=== PATIENT | male | born 1960 | race Caucasian/White ===

== ENCOUNTER → 2016-10-15 | Outpatient (CLI) | payer BC, OTHER ==
[~2016-10-15] VITALS: Ht 167.6 cm; Wt 98.4 kg
[~2016-10-15] MED LIST: ACCUNEB SO1.25 MG/1 INH; ASPIR 8181 MG PO; CARISOPRODOL 3350 M1 PO; CARISOPRODOL 3350 MG PO; CEFUROXIME250 MG PO; DILAUDID 2 MG TA2 MG PO; DOXYCYCLINE HY100 M3 PO; ENALAPRIL MALEA10 M1 PO; FERREX 150 PLU1 EAC1 PO; GUAIFENESIN-CODE5 ML PO; NAPROSYN500 MG PO; NITRO-TIME2.5 MG PO; OXYCONTIN20 M1 PO; OXYCONTIN40 MG PO; PACERONE 200 M200 MG PO; PROTONIX40 M2 PO; TOPROL XL25 MG PO; TRAMADOL 50 MG50 MG PO; TRAZODONE HCL50 MG PO; VENTOLIN HFA 1818 GM INH; VICODIN 5-5001 EACH PO; VITAMINC500 PO; WELLBUTRIN XL150 M1 PO; XANAX 0.5 MG0.5 M1 PO
--- NOTE | ~2016-10-15 | CATHLAB ---
[facility] [place] [address] INVASIVE PROCEDURE REPORT Name: TRACI NAGEL Room #: REG CL Jose Maria#: [id number] Admission: 10/15/16 Attend Phys: Marcelo Perdomo MD Discharge: Date of : 62 Date of Service: 10/15/16 1317 Report #: [id number] THIS REPORT FOR: //name// CC: Miguel Perdomo DATE OF SERVICE: 10/15/2016 INDICATION: Unstable angina, abnormal nuclear stress test. Full risks, benefits and alternatives of cardiac catheterization were explained to the patient. All questions were answered. Informed consent was obtained. A Barbeau test was performed on the right radial artery. The right wrist area was prepped and draped in a sterile manner. Lidocaine was given subcutaneously. A 5-Sudanese sheath was inserted into the right radial artery via modified Seldinger technique. Nitroglycerin and verapamil was injected through the sheath. The right radial artery was tortuous with a severe, acute loop in the upper forearm. It was decided at this time to proceed with the cardiac catheterization via the right femoral artery access. After the procedure, the sheath was removed and a Vasc band was applied for hemostasis. A 4-Sudanese sheath was inserted into the right femoral artery via modified Seldinger technique. CORONARY ANATOMY: 1. The left main has mild disease in the distal segment, 30%. 2. The LAD has a severe, 80% stenosis in the proximal segment, just before the takeoff of the first septal director of labor and delivery. 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 Within this aneurysmal segment is a takeoff of the first diagonal artery. The mid LAD has mild diffuse disease, 30%. 3. The left circumflex artery supplies 3 obtuse marginal arteries. The ostium of the left circumflex artery has a 50-60% stenosis. The first obtuse marginal artery has a proximal 60-70% stenosis. The second and third obtuse marginal arteries are of moderate size caliber with no flow-limiting lesions. 4. The RCA is a dominant vessel supplying PDA and posterolateral branches. There is a subtotal occlusion in the proximal RCA. The remaining segments of the RCA are filled via collaterals. A left ventriculogram was performed revealing an ejection fraction of 45%. There is hypokinesis of the mid to basal inferior wall. The LVEDP is approximately 24 mmHg. There is no gradient across the outflow tract. IMPRESSION: 1. Severe 2-vessel disease. [facility] [address] [place] [address] INVASIVE PROCEDURE REPORT Name: NAGELDIANNNANCI CHICO Room #: REG [facility]#: [id number] Admission: 10/15/16 Attend Phys: Marcelo Perdomo MD Discharge: Date of : 62 Date of Service: 10/15/16 1317 Report #: [id number] 2. Mild segmental left ventricular dysfunction. 3. Recommend surgical evaluation. <ELECTRONICALLY SIGNED> By: Marcelo Perdomo MD 10/16/16 0848 1317 1401 Marcelo Perdomo MD /nt
--- NOTE | ~2016-10-15 | EKG ---
[place] [address] [address] [facility] [place] [employer] [address] ELECTROCARDIOGRAM REPORT Name: DIANN NAGELNANCI COBIAN Room #: REG CLI RoelRoel#: [id number] Admission: 10/15/16 Attend Phys: Marcelo Perdomo MD Discharge: Date of : 62 Report #: [id number] THIS REPORT FOR: //name// [facility] Test Date: 2016-10-15 Test Time: 10:01:06 Pat Name: TRACI NAGEL Department: Room: Gender: M [employer]: oral : 1960 Requested By: Marcelo Perdomo Order Number: [id number] MD: Amilcar Lindsey Measurements Intervals [place] Rate: 67 P: 28 WY: 135 QRS: 60 QRSD: 114 T: 11 QT: 443 QTc: 468 Interpretive Statements Sinus rhythm Probable left ventricular hypertrophy Inferior infarct, old No previous ECG available for comparison Electronically Signed On 10-15-2016 10:08:16 SPOT FACER by Amilcar Lindsey [email or web address] <ELECTRONICALLY SIGNED> By: Amilcar Lindsey MD 10/15/16 1008 1001 1001 MD LALI Soto
[2016-10-15 10:16] VITALS: BP 166/109
[2016-10-15 10:17] LABS: HEMOGLOBIN 14.5 gm/dL (14.0-18.0); MCHC 34.6 % (28.0-37.0); MCV 89.5 fL (80.0-100.0); RBC 4.69 mil/uL (4.50-6.00); WBC 7.5 thou/uL (4.0-11.0)
[2016-10-15 10:22] LABS: CALCIUM 8.6 mg/dL (8.5-10.1); CREATININE 0.7 mg/dL (0.6-1.3); POTASSIUM 4.1 mmol/L (3.5-5.1)
== END ==
LOC: CATH 07:18
PROVIDERS: Internal Medicine Cardiovascular Disease
DX: I20.0 Unstable angina (principal); R94.39 Abnormal result of other cardiovascular function study; Z95.1 Presence of aortocoronary bypass graft; I11.9 Hypertensive heart disease without heart failure; K21.9 Gastro-esophageal reflux disease without esophagitis; F17.210 Nicotine dependence, cigarettes, uncomplicated; Z86.19 Personal history of other infectious and parasitic diseases

== ENCOUNTER 2017-06-28 17:23 | Emergency (ER) | payer BC, OTHER ==
[~2017-06-28] VITALS: Ht 167.6 cm; Wt 90.7 kg
[2017-06-28] MEDS ORDERED: TIZANIDINE HCL4 M1 PO (17:37)
[2017-06-28] MEDS ORDERED: PREDNISONE 20 M20 MG PO (17:55)
[2017-06-28] MEDS ORDERED: CARISOPRODOL 3350 MG PO (17:57)
== END 2017-06-28 18:05 | disposition home or self-care (01) ==
LOC: ER 17:23
DX: M54.5 Low back pain (principal); K21.9 Gastro-esophageal reflux disease without esophagitis; I10 Essential (primary) hypertension; G47.30 Sleep apnea, unspecified; K74.60 Unspecified cirrhosis of liver; I25.2 Old myocardial infarction; Z90.89 Acquired absence of other organs; Z88.1 Allergy status to other antibiotic agents; Z88.6 Allergy status to analgesic agent; Z87.891 Personal history of nicotine dependence

== ENCOUNTER → 2018-02-28 | Outpatient (CLI) | payer BC ==
[~2018-02-28] MED LIST changes: +PREDNISONE 20 M20 MG PO; +TIZANIDINE HCL4 M1 PO
== END ==
LOC: NUC 06:35
DX: I25.10 Atherosclerotic heart disease of native coronary artery without angina pectoris (principal); I10 Essential (primary) hypertension; I48.92 Unspecified atrial flutter

== ENCOUNTER 2018-05-07 08:48 | Emergency (ER) | payer BC ==
[~2018-05-07] VITALS: Ht 167.6 cm; Wt 95.3 kg
[2018-05-07] MEDS ORDERED: PERCOCET 10-321 EACH PO (09:23)
[2018-05-07] MEDS ORDERED: MEDROLDOSEPACK PO (09:23)
== END 2018-05-07 09:42 | disposition home or self-care (01) ==
LOC: ER 08:48
DX: M54.12 Radiculopathy, cervical region (principal); I10 Essential (primary) hypertension; K21.9 Gastro-esophageal reflux disease without esophagitis; I25.2 Old myocardial infarction; M54.9 Dorsalgia, unspecified; G89.29 Other chronic pain; Z87.891 Personal history of nicotine dependence; Z88.8 Allergy status to other drugs, medicaments and biological substances

== ENCOUNTER → 2019-02-27 | Outpatient (CLI) | payer BC ==
[~2019-02-27] MED LIST changes: +MEDROLDOSEPACK PO; +PERCOCET 10-321 EACH PO
== END ==
LOC: MRI 12:18
DX: M47.817 Spondylosis without myelopathy or radiculopathy, lumbosacral region (principal); M51.27 Other intervertebral disc displacement, lumbosacral region; M48.07 Spinal stenosis, lumbosacral region; M25.78 Osteophyte, vertebrae

== ENCOUNTER → 2019-03-13 | Outpatient (CLI) | payer BC ==
--- NOTE | 2019-03-13 11:37 | 2DMMODE ---
[facility] [employer] [place] [place] [address] 2 D/M-MODE ECHOCARDIOGRAM Name: ROBETRACI Room #: REG [facility]#: [id number] ������������� Admission: 03/13/19 ������������� Attend Phys: Marcelo Perdomo MD Discharge: ��� ������������� ��� Date of : 62 Date of Service: 03/13/19 1137 �� Report #: [id number] �������� ��������������������������������������������[id number] THIS REPORT FOR: //name// APPROVED REPORT Study performed: 03/13/2019 09:59:34 EXAM: Comprehensive 2D, Doppler, and color-flow Echocardiogram Patient Location: Out-Patient Status: routine BSA: 2.04 HR: 71 bpm BP: 144/86 mmHg Rhythm: NSR Other Information Study Quality: Adequate Technically limited study due to . Indications Cardiomyopathy Hx: UT, CABG, COPD, HTN. 2D Dimensions RVDd: 41.27 mm IVSd: 13.52 (7-11mm) LVOT Diam: 22.92 (18-24mm) LVDd: 52.74 mm PWd: 12.50 (7-11mm) Ascending Ao: 35.53 (22-36mm) LVDs: 37.80 (25-40mm) Aortic Root: 38.65 mm Volumes Left Atrial Volume (Systole) Single Plane 4CH: 83.24 mL Single Plane 2CH: 85.19 mL LA ESV Index: 43.00 mL/m2 Aortic Valve AoV Peak Geovany.: 1.38 m/s AO Peak Gr.: 7.58 mmHg LVOT Max P.72 mmHg LVOT Max V: 1.20 m/s DONTE Vmax: 3.58 cm2 Mitral Valve E/A Ratio: 1.[address] [facility] [address] [place] [address] 2 D/M-MODE ECHOCARDIOGRAM Name: TRACI NAGEL Room #: REG [facility]#: [id number] ������������� Admission: 03/13/19 ������������� Attend Phys: Marcelo Perdomo MD Discharge: ��� ������������� ��� Date of : 62 Date of Service: 03/13/19 1137 �� Report #: [id number] �������� ��������������������������������������������[id number] MV Decel. Time: 188.51 ms MV E Max Geovany.: 1.19 m/s MV A Geovany.: 0.95 m/s MV PHT: 54.67 ms IVRT: 76.12 ms Pulmonary Valve PV Peak Geovany.: 0.88 m/s PV Peak Gr.: 3.10 mmHg Pulmonary Vein P Vein S: 0.56 m/s P Vein A: 0.29 m/s P Vein D: 0.55 m/s P Vein A Dur.: 103.8 msec P Vein S/D Ratio: 1.02 Tricuspid Valve TR Peak Geovany.: 2.22 m/s RAP Estimate: 5.00 mmHg TR Peak Gr.: 19.63 mmHg PA Pressure: 25.00 mmHg Left Ventricle The left ventricle is normal size. There is hypokinesis of the mid to basal inferior wall. Mild concentric left ventricular hypertrophy. Left ventricular systolic function is normal. LVEF is 55%. Right Ventricle The right ventricle is normal size. The right ventricular systolic function is low normal. Atria Left atrium is mildly dilated. Right atrium is at the upper limits of normal. Aortic Valve The aortic valve is grossly normal. No aortic regurgitation is present. There is no aortic valvular stenosis. Mitral Valve The mitral valve is normal in structure. Trace mitral regurgitation. Tricuspid Valve The tricuspid valve is normal in structure. Mild tricuspid regurgitation. Estimated PAP is 25mmHg. Pulmonic Valve The pulmonary valve is normal in structure. Mild pulmonic [facility] [address] [place] [address] 2 D/M-MODE ECHOCARDIOGRAM Name: [facility] Room #: REG [facility] [id number] ������������� Admission: 03/13/19 ������������� Attend Phys: Marcelo Perdomo MD Discharge: ��� ������������� ��� Date of : 62 Date of Service: 03/13/19 1137 �� Report #: [id number] �������� ��������������������������������������������[id number] regurgitation. Great Vessels Aortic root is borderline dilated. The ascending aorta is normal in size. IVC is normal in size and collapses >50% with inspiration. Pericardium There is no pericardial effusion. <Conclusion> The left ventricle is normal size. Mild concentric left ventricular hypertrophy. Left ventricular systolic function is normal. There is hypokinesis of the mid to basal inferior wall. The right ventricle is normal size. Left atrium is mildly dilated. The aortic valve is grossly normal. Trace mitral regurgitation. Mild tricuspid regurgitation. Estimated PAP is 25mmHg. ��������������������������������������������� <ELECTRONICALLY SIGNED> ���������������������������������������� By: Marcelo Perdomo MD ��������������������������������������������� 03/13/19 1137 1137 1137 Marcelo Perdomo MD /INF
== END ==
LOC: CV 09:37
DX: I07.1 Rheumatic tricuspid insufficiency (principal); I37.1 Nonrheumatic pulmonary valve insufficiency; I25.10 Atherosclerotic heart disease of native coronary artery without angina pectoris; I25.2 Old myocardial infarction; I10 Essential (primary) hypertension; J44.9 Chronic obstructive pulmonary disease, unspecified; Z95.5 Presence of coronary angioplasty implant and graft